=== PATIENT | female | born 1980 | race American Indian/Alaskan Native ===

== ENCOUNTER 2017-11-07 10:43 | Emergency (ER) | payer BC ==
[2017-11-07 11:00] VITALS: BP 110/73
--- NOTE | 2017-11-07 12:40 | Emergency Department Report ---
ED Back Pain/Injury HPI - General Chief Complaint: Urogenital-Female Stated Complaint: SEVERE BACK PAIN/UTI PROBLEMS Source: patient Limitations: No Limitations - History of Present Illness Initial Comments: This is a 37-year-old -[place] female who presents with low back pain and foul urine odor for one week. Patient states she was seen at [facility] 2 weeks ago had a full workup for STDs and diagnosed with urinary tract infection. Patient states she was started on Bactrim for 7 days and completed medication 2-3 days ago. Patient states she have frequent urinary tract infections and usually receive Macrobid for treatment. She is now complaining of low back pain, nausea, foul ammonia odor to urine. There is nausea without vomiting. She reports pain 5 out of 10 to lower back while walking which is a dull achy sensation just intermittent. Patient is also complaining of pressure after voiding with dysuria. She denies frequency, urgency abdominal pain, vaginal discharge or bleeding, fever, and chest pain. MD Complaint: back pain Onset/Timin -: days(s) Similar Symptoms Previously: Yes Place: home Radiation: none Severity: mild Severity scale (0 -10): 5 Quality: burning, dull, aching Consistency: intermittent Improves With: none Worsens With: walking Associated Symptoms: nausea/vomiting Treatments Prior to Arrival: other medications (Bactrim antibiotic) - Related Data Home Medications Medication Instructions Recorded Confirmed Last Taken Acetaminophen [Pain Relief] 500 mg PO PRN PRN 03/06/14 03/11/14 03/04/14 Citalopram Hydrobromide [celeXA] 10 mg PO DAILY 03/06/14 03/11/14 03/10/14 19:00 [place]-3 Fatty Acids/Fish Oil [Fish 1 tab PO DAILY 03/06/14 03/06/14 03/03/14 Oil] Previous Rx's Medication Instructions Recorded Last Taken Type Azithromycin [Zithromax Z-OVI] 250 mg PO DAILY #6 tablet 07/07/13 02/24/14 Rx Fluconazole [Diflucan 200] 200 mg PO QDAY #1 tablet 02/24/14 Unknown Rx Ibuprofen [Motrin] 600 mg PO Q8H PRN #30 tablet 02/24/14 02/24/14 Rx metroNIDAZOLE [Flagyl] 500 mg PO BID #20 tablet 02/24/14 03/10/14 13:00 Rx Acetaminophen/Codeine [Tylenol #3] 1 tab PO Q8H PRN #12 tablet 12/07/14 Unknown Rx Cyclobenzaprine [Flexeril 10 MG 10 mg PO TID PRN #15 tablet 12/07/14 Unknown Rx TAB] Ibuprofen [Motrin] 800 mg PO Q8HR PRN #21 tablet 12/07/14 Unknown Rx Ibuprofen [Motrin 800 MG tab] 800 mg PO Q8HR PRN #12 tablet 11/07/17 Unknown Rx Allergies Allergy/AdvReac Type Severity Reaction Status Date / Time No Known Allergies Allergy Verified 07/07/13 06:32 ED Review of Systems ROS: Stated complaint: SEVERE BACK PAIN/UTI PROBLEMS Other details as noted in HPI Constitutional: denies: chills, fever Respiratory: denies: cough, shortness of breath, wheezing Cardiovascular: denies: chest pain, palpitations Gastrointestinal: denies: abdominal pain, nausea, diarrhea Genitourinary: dysuria. denies: urgency, frequency, hematuria, discharge Musculoskeletal: back pain (low back pain). denies: joint swelling, arthralgia Skin: denies: rash, lesions Neurological: denies: headache, weakness, paresthesias Psychiatric: denies: anxiety, depression ED Past Medical Hx - Past Medical History sickle cell trait, anemia Family history: no significant family history ED Back Pain Physical Exam - Exam General: Vital signs noted. No distress. Alert and acting appropriately. Back/Abdomen: Yes Perilumbar Tenderness (left side, negative straight leg test bilaterally), No Abdominal Tenderness, No Perithoracic Tenderness, No Sacroiliac Tenderness, No Flank Tenderness, No Straight Leg Raise Pain Neuro: Yes Normal Sensation, Yes Normal DTR's, Yes Normal Gait, No Motor Weakness ED Course Vital Signs 11/07/17 10:57 Temperature 98.8 F Pulse Rate 67 Respiratory 18 Rate Blood Pressure 110/73 O2 Sat by Pulse 99 Oximetry ED Medical Decision Making - Lab Data Lab Results 11/07/17 Range/Units Unknown Urine Color Yellow (Yellow) Urine Turbidity Clear (Clear) Urine pH 6.0 (5.0-7.0) Ur Specific [place] 1.010 (1.003-1.030) Urine Protein <15 mg/dl (Negative) mg/dL Urine Glucose (UA) Neg (Negative) mg/dL Urine Ketones Neg (Negative) mg/dL Urine Blood Neg (Negative) Urine Nitrite Neg (Negative) Urine Bilirubin Neg (Negative) Urine Urobilinogen < 2.0 (<2.0) mg/dL Ur Leukocyte Esterase Sm (Negative) Urine WBC (Auto) 7.0 H (0.0-6.0) /HPF Urine RBC (Auto) 3.0 (0.0-6.0) /HPF U Epithel Cells (Auto) 3.0 (0-13.0) /HPF Urine Bacteria (Auto) 2+ (Negative) /HPF Urine HCG, Qual Negative (Negative) - Medical Decision Making Patient was examined by me. Vitals are normal and patient is in no acute distress. Obtained a urinalysis and urine hCG, all unremarkable. Patient informed of results. Start ibuprofen for muscle strain. Plan discussed with patient to discharge home and treat outpatient. Patient discharged home in stable condition. Follow up with PCP in 2-3 days. Critical care attestation.: If time is entered above; I have spent that time in minutes in the direct care of this critically ill patient, excluding procedure time. ED Disposition Clinical Impression: Strain of muscle, fascia and tendon of lower back, initial encounter Low back pain Qualifiers: Chronicity: acute Back pain laterality: bilateral Sciatica presence: without sciatica Qualified Code(s): M54.5 - Low back pain Disposition: TO HOME OR SELFCARE Is pt being admited?: No Does the pt Need Aspirin: No Condition: Stable Instructions: Low Back Strain (ED), Core Strengthening Exercises (GEN) Additional Instructions: Rest Use ice or heat on affected area for 20 minutes and off for 2 hours. Take pain medication as needed for pain. Follow up with Primary Care Provider in 2-3 days. Prescriptions: Ibuprofen [Motrin 800 MG tab] 800 mg PO Q8HR PRN #12 tablet PRN Reason: Pain , Severe (7-10) Referrals: [facility] [Provider Group] - 3-5 Days [facility] [Provider Group] - 3-5 Days DMITRIY HOOKER MD [Staff Physician] - 3-5 Days Forms: Work/School Release Form(ED) Time of Disposition: 13:56 Print Language: LATVIAN
[2017-11-07 12:56] LABS: Bacteria,Urine 2+ /HPF (Negative); Bilirubin,Urine NEG (Negative); Blood,Urine NEG (Negative); Color,Urine Yellow (Yellow); Protein,Urine <15 mg/dL mg/dL (Negative); Urobilinogen,Urine < 2.0 mg/dL (<2.0)
[2017-11-07 12:59] LABS: HCG Qualitative,Urine Negative (Negative)
== END 2017-11-07 14:07 | disposition home or self-care (01) ==
LOC: ED 10:43
DX: S39.012A Strain of muscle, fascia and tendon of lower back, initial encounter (principal); X58.XXXA Exposure to other specified factors, initial encounter; Y93.01 Activity, walking, marching and hiking; Y92.098 Other place in other non-institutional residence as the place of occurrence of the external cause; Y99.8 Other external cause status
CPT/HCPCS: 81001; 81025; 99283

== ENCOUNTER 2018-03-21 16:55 | Emergency (ER) | payer BC ==
[2018-03-21 17:05] VITALS: BP 132/66
[2018-03-21 17:58] LABS: Basophils % (Auto) 0.2 % (0.0-1.8); Eosinophils % (Auto) 0.5 % (0.0-4.3); Hematocrit 37.5 % (30.3-42.9); Hemoglobin 12.6 gm/dl (10.1-14.3); Lymphocytes # (Auto) 1.5 K/mm3 (1.2-5.4); Mean Corpuscular HGB Conc 34 % (30-34); Mean Corpuscular Volume 88 fl (79-97); Monocytes # (Auto) 1.1 K/mm3 (0.0-0.8); Monocytes % (Auto) 11.6 % (0.0-7.3); Platelet Count 282 K/mm3 (140-440); Red Blood Count 4.27 M/mm3 (3.65-5.03); Red Cell Distribution Width 15.5 % (13.2-15.2)
[2018-03-21 19:48] LABS: Bilirubin,Urine NEG (Negative); Blood,Urine LG (Negative); Color,Urine Red (Yellow); Urobilinogen,Urine < 2.0 mg/dL (<2.0)
[2018-03-21 19:49] LABS: RBC,Urine > 182.0 /HPF (0.0-6.0)
--- NOTE | 2018-03-21 20:39 | Ultrasound Report ---
FINAL REPORT EXAM: US OB <= 14 WEEKS FETUS HISTORY: VAG BLEED TECHNIQUE: Ultrasound obstetrical transabdominal PRIORS: None. FINDINGS: Endometrial thickness is 3.82 centimeters. Within the body and lower uterine segment there mixed echo genicity there is a small sac like structure without pole or yolk sac identified centrally with in the uterus along with masslike irregularity and thickened appearance of the endometrium. Sac measu res 1.6 centimeters by sac diameter corresponding to estimated gestational age 6 weeks 3 days No free fluid identified. Right ovary is 2.4 x 1.7 x 1.6 centimeters left ovary is 2.7 x 2.0 x 1.7 centimeters. Complex 1.4 lyndsay timeter left ovarian cyst noted. IMPRESSION: Small sac like structure within the uterus without pole or yolk sac identified endometrial thickening and irregularity with a masslike appearance findings are most suggestive of bl ighted ovum with retained products of conception and/or clot.
--- NOTE | 2018-03-21 20:40 | Ultrasound Report ---
FINAL REPORT EXAM: US OB TRANSVAGINAL HISTORY: VAG BLEED TECHNIQUE: PRIORS: None. FINDINGS: Endometrial thickness is 3.82 centimeters. Within the body and lower uterine segment there mixed echo genicity there is a small sac like structure without pole or yolk sac identified centrally with in the uterus along with masslike irregularity and thickened appearance of the endometrium. Sac measu res 1.6 centimeters by sac diameter corresponding to estimated gestational age 6 weeks 3 days No free fluid identified. Right ovary is 2.4 x 1.7 x 1.6 centimeters Left ovary is 2.7 x 2.0 x 1.7 centimeters. Complex 1.4 centimeter left ovarian cyst noted. IMPRESSION: Small sac like structure within the uterus without pole or yolk sac identified endometrial thickening and irregularity with a masslike appearance findings are most suggestive of bl ighted ovum with retained products of conception and/or clot.
[2018-03-21] MEDS ORDERED: IBUPROFEN PO ONE (21:18)
--- NOTE | 2018-03-21 21:23 | Emergency Department Report ---
ED Female HPI - General Chief complaint: Vaginal Bleeding Stated complaint: MISCARRIAGE Time Seen by Provider: 03/21/18 20:13 Source: patient Mode of arrival: Ambulatory Limitations: No Limitations - History of Present Illness Initial comments: Ms. Larsen is a very pleasant 38-year-old female is currently 8 weeks . She was diagnosed with threatened miscarriage at [facility] Sunday. She was evaluated by her primary site manager Dr. Selwyn Barbosa on Sunday. On both ultrasound she was at the findings of abnormal yolk sac. Her hCG was 24,000 on Sunday. Her hCG level was 23,000 on Sunday. She began spotting on Sunday. Today this evening she had large amount of bleeding with clots. Severe cramping. The cramping and pain have subsided. This is patient's third . She has 2 healthy children both by section. MD Complaint: vaginal bleeding -: Gradual Severity: severe Quality: cramping Consistency: now resolved Are you Now?: Yes Associated Symptoms: vaginal bleeding - Related Data Sexually active: Yes : 3 Para: 2 Home Medications Medication Instructions Recorded Confirmed Last Taken Acetaminophen [Pain Relief] 500 mg PO PRN PRN 03/06/14 03/11/14 03/04/14 Citalopram Hydrobromide [celeXA] 10 mg PO DAILY 03/06/14 03/11/14 03/10/14 19:00 [place]-3 Fatty Acids/Fish Oil [Fish 1 tab PO DAILY 03/06/14 03/06/14 03/03/14 Oil] Previous Rx's Medication Instructions Recorded Last Taken Type Azithromycin [Zithromax Z-OVI] 250 mg PO DAILY #6 tablet 07/07/13 02/24/14 Rx Fluconazole [Diflucan 200] 200 mg PO QDAY #1 tablet 02/24/14 Unknown Rx Ibuprofen [Motrin] 600 mg PO Q8H PRN #30 tablet 02/24/14 02/24/14 Rx metroNIDAZOLE [Flagyl] 500 mg PO BID #20 tablet 02/24/14 03/10/14 13:00 Rx Acetaminophen/Codeine [Tylenol #3] 1 tab PO Q8H PRN #12 tablet 12/07/14 Unknown Rx Cyclobenzaprine [Flexeril 10 MG 10 mg PO TID PRN #15 tablet 12/07/14 Unknown Rx TAB] Ibuprofen [Motrin] 800 mg PO Q8HR PRN #21 tablet 12/07/14 Unknown Rx Ibuprofen [Motrin 800 MG tab] 800 mg PO Q8HR PRN #12 tablet 11/07/17 Unknown Rx Ibuprofen 800 mg PO QID PRN #10 tablet 03/21/18 Unknown Rx Allergies Allergy/AdvReac Type Severity Reaction Status Date / Time No Known Allergies Allergy Verified 07/07/13 06:32 ED Review of Systems ROS: Stated complaint: MISCARRIAGE Other details as noted in HPI Comment: All other systems reviewed and negative Constitutional: denies: fever, malaise Respiratory: denies: cough Cardiovascular: denies: chest pain ED Past Medical Hx - Past Medical History Previous Medical History?: Yes Hx GERD: Yes Hx Renal Disease: No Hx Sickle Cell Disease: (SICKLE CELL TRAIT ONLY) Hx Psychiatric Treatment: Yes (anxiety) Additional medical history: sickle cell trait, anemia - Surgical History Past Surgical History?: Yes Additional Surgical History: 2 c-sections, left foot surgery - Social History Smoking Status: Current Every Day Smoker Substance Use Type: Alcohol - Medications Home Medications: Home Medications Medication Instructions Recorded Confirmed Last Taken Type Azithromycin [Zithromax Z-OVI] 250 mg PO DAILY #6 tablet 07/07/13 03/06/14 02/24/14 Rx Fluconazole [Diflucan 200] 200 mg PO QDAY #1 tablet 02/24/14 03/11/14 Unknown Rx Ibuprofen [Motrin] 600 mg PO Q8H PRN #30 tablet 02/24/14 03/06/14 02/24/14 Rx metroNIDAZOLE [Flagyl] 500 mg PO BID #20 tablet 02/24/14 03/11/14 03/10/14 13:00 Rx Acetaminophen [Pain Relief] 500 mg PO PRN PRN 03/06/14 03/11/14 03/04/14 History Citalopram Hydrobromide [celeXA] 10 mg PO DAILY 03/06/14 03/11/14 03/10/14 19:00 History [place]-3 Fatty Acids/Fish Oil [Fish 1 tab PO DAILY 03/06/14 03/06/14 03/03/14 History Oil] Acetaminophen/Codeine [Tylenol #3] 1 tab PO Q8H PRN #12 tablet 12/07/14 Unknown Rx Cyclobenzaprine [Flexeril 10 MG 10 mg PO TID PRN #15 tablet 12/07/14 Unknown Rx TAB] Ibuprofen [Motrin] 800 mg PO Q8HR PRN #21 tablet 12/07/14 Unknown Rx Ibuprofen [Motrin 800 MG tab] 800 mg PO Q8HR PRN #12 tablet 11/07/17 Unknown Rx Ibuprofen 800 mg PO QID PRN #10 tablet 03/21/18 Unknown Rx ED Physical Exam - General Limitations: No Limitations General appearance: alert, in no apparent distress - Head Head exam: Present: atraumatic, normocephalic - Eye Eye exam: Present: normal appearance - ENT ENT exam: Present: mucous membranes moist - Neck Neck exam: Present: normal inspection, full ROM - Respiratory Respiratory exam: Present: normal lung sounds bilaterally. Absent: respiratory distress, wheezes, rales, rhonchi - Cardiovascular Cardiovascular Exam: Present: regular rate, normal rhythm, normal heart sounds. Absent: systolic murmur, diastolic murmur, rubs, gallop - GI/Abdominal GI/Abdominal exam: Present: soft, normal bowel sounds. Absent: distended, tenderness, guarding, rebound - Extremities Exam Extremities exam: Present: normal inspection - Back Exam Back exam: Present: normal inspection - Neurological Exam Neurological exam: Present: alert, oriented X3 - Psychiatric Psychiatric exam: Present: normal affect, normal mood - Skin Skin exam: Present: warm, dry, intact, normal color. Absent: rash ED Course Vital Signs 03/21/18 17:02 Temperature 98.9 F Pulse Rate 102 H Respiratory 20 Rate Blood Pressure 132/66 O2 Sat by Pulse 100 Oximetry ED Medical Decision Making - Lab Data Result diagrams: 03/21/18 17:28 Laboratory Results - last 24 hr 03/21/18 03/21/18 03/21/18 17:28 17:28 17:28 WBC 9.1 RBC 4.27 Hgb 12.6 Hct 37.5 MCV 88 MCH 30 MCHC 34 RDW 15.5 H Plt Count 282 Lymph % (Auto) 17.0 [place] % (Auto) 11.6 H Eos % (Auto) 0.5 Baso % (Auto) 0.2 Lymph # 1.5 [place] # 1.1 H Eos # 0.0 Baso # 0.0 Seg Neutrophils % 70.7 H Seg Neutrophils # 6.4 HCG, Quant 23849 H Urine Color Urine Turbidity Urine pH Ur Specific [place] Urine Protein Urine Glucose (UA) Urine Ketones Urine Blood Urine Nitrite Urine Bilirubin Urine Urobilinogen Ur Leukocyte Esterase Urine WBC (Auto) Urine RBC (Auto) U Epithel Cells (Auto) Blood Type O POSITIVE Antibody Screen Negative 03/21/18 Unknown WBC RBC Hgb Hct MCV MCH MCHC RDW Plt Count Lymph % (Auto) [place] % (Auto) Eos % (Auto) Baso % (Auto) Lymph # [place] # Eos # Baso # Seg Neutrophils % Seg Neutrophils # HCG, Quant Urine Color Red Urine Turbidity Slightly-cloudy Urine pH 6.0 Ur Specific [place] 1.010 Urine Protein 30 mg/dl Urine Glucose (UA) Neg Urine Ketones Neg Urine Blood Lg Urine Nitrite Neg Urine Bilirubin Neg Urine Urobilinogen < 2.0 Ur Leukocyte Esterase Neg Urine WBC (Auto) 3.0 Urine RBC (Auto) > 182.0 U Epithel Cells (Auto) 2.0 Blood Type Antibody Screen - Radiology Data Radiology results: report reviewed Transvaginal ultrasound: Small saclike structure within the uterus without pole or yolk sac findings most consistent of blighted Ovum with retained products of conception - Medical Decision Making Ms. Larsen has findings of incomplete miscarriage. HCG is down trending from 24,000 to 14,000. No significant anemia. Bleeding has subsided. She has follow-up with Dr. Barbosa tomorrow previously scheduled appt. Discharged home with prescription for ibuprofen Blood type O+ Critical care attestation.: If time is entered above; I have spent that time in minutes in the direct care of this critically ill patient, excluding procedure time. ED Disposition Clinical Impression: Incomplete miscarriage Disposition: TO HOME OR SELFCARE Is pt being admited?: No Does the pt Need Aspirin: No Condition: Stable Instructions: Spontaneous Miscarriage (ED) Prescriptions: Ibuprofen 800 mg PO QID PRN #10 tablet PRN Reason: Pain , Severe (7-10) Referrals: SELWYN BARBOSA MD [Staff Physician] - 24 Hours Forms: Work/School Release Form(ED)
== END 2018-03-21 21:32 | disposition home or self-care (01) ==
LOC: ED 16:55
DX: O20.0 Threatened abortion (principal); K21.9 Gastro-esophageal reflux disease without esophagitis; F17.200 Nicotine dependence, unspecified, uncomplicated; Z3A.08 8 weeks gestation of pregnancy
CPT/HCPCS: 36415; 76801; 76817; 81001; 84702; 85025; 86850; 86900; 86901; 99284

== ENCOUNTER 2018-03-26 11:10 | Day surgery (SDC) | payer BC ==
[2018-03-26] MEDS ORDERED: DILAUDID IV PRN (12:48)
[2018-03-26] MEDS ORDERED: PERCOCET 5/325 PO PRN (12:48)
--- NOTE | 2018-03-26 12:48 | Anesthesia Consultation ---
Anesthesia Consult and Med Hx Date of service: 03/26/18 - Airway Anesthetic Teeth Evaluation: Good ROM Head & Neck: Adequate Mental/Hyoid Distance: Adequate Mallampati Class: Class II Intubation Access Assessment: Probably Good - Pulmonary Exam CTA: Yes - Cardiac Exam Cardiac Exam: RRR - Pre-Operative Health Status ASA Pre-Surgery Classification: ASA2 Proposed Anesthetic Plan: General - Pulmonary Hx Smoking: Yes (hookah occassionally) Hx Asthma: No Hx Respiratory Symptoms: Yes (recent URI with nonproductive cough; resolved) SOB: No - Cardiovascular System Hx Hypertension: No Hx Heart Attack/AMI: No Hx Percutaneous Transluminal Coronary Angioplasty (PTCA): No - Central Nervous System Hx Seizures: No CVA: No Hx Back Pain: Yes Hx Psychiatric Problems: Yes (anxiety) - Gastrointestinal Hx Gastroesophageal Reflux Disease: No - Endocrine Hx Renal Disease: No Hx Liver Disease: No Hx Insulin Dependent Diabetes: No Hx Non-Insulin Dependent Diabetes: No Hx Thyroid Disease: No - Other Systems Hx Alcohol Use: Yes (weekly) Hx Obesity: Yes - Additional Comments Anesthesia Medical History Comments: Spont. at 8wks. No hx anesthetic complications.
--- NOTE | 2018-03-26 12:48 | Anesthesia Day of Surgery ---
Anesthesia Day of Surgery - Day of Surgery Patient Examined: Yes Patient H&P Reviewed: Yes Patient is NPO: Yes
[2018-03-26] MEDS ORDERED: LACTATED RINGERS 1,000 ML IV SCH (13:00)
[2018-03-26] MEDS ORDERED: VERSED IV NR (13:00)
--- NOTE | 2018-03-26 13:03 | Short Stay Summary ---
Short Stay Documentation Date of service: 03/26/18 Narrative H&P: Pt is a 38yo BF LMP 01/09/18 presents for a D&C due to an incomplete . Transvaginal ultrasound showed a small saclike structure within the uterus without pole or yolk sac findings most consistent of blighted Ovum with retained products of conception. - History Principal diagnosis: Incomplete H&P: obtained from office Past Medical History: No medical history Past Surgical History: Social history: no significant social history, single - Allergies and Medications Current Medications: Allergies No Known Allergies Allergy (Verified 07/07/13 06:32) Home Medications Medication Instructions Recorded Confirmed Last Taken Type Citalopram Hydrobromide [celeXA] 10 mg PO DAILY 03/06/14 03/26/18 03/10/14 19:00 History Ibuprofen 800 mg PO QID PRN #10 tablet 03/21/18 03/26/18 03/25/18 18:00 Rx Active Medications Hydromorphone HCl (Dilaudid) 0.5 mg IV Q10MIN PRN PRN Reason: Pain , Severe (7-10) Lactated Ringer's (Lactated Ringers) 1,000 mls @ 75 mls/hr IV DIRECT SANTANA Midazolam HCl (Versed) 2 mg IV PREOP NR Stop: 03/26/18 23:59 Oxycodone/Acetaminophen (Percocet 5/325) 1 tab PO ONCE PRN PRN Reason: Pain, Moderate (4-6) - Physical exam General appearance: no acute distress Integumentary: no rash HEENT: Atraumatic Lungs: Clear to auscultation Breasts: deferred Heart: Regular rate Gastrointestinal: normal Female Genitourinary: deferred Rectal Exam: deferred Extremities: no ischemia Neurological: Normal gait, Normal speech - Brief post op/procedure progress note Date of procedure: 03/26/18 Pre-op diagnosis: 1. Blighted ovum 2. Incomplete Post-op diagnosis: same Procedure: Dilatation and curettage Anesthesia: MAC Findings: An 8-10 week size uterus with scant amounts of problems of conception. Surgeon: ABIMAEL FORD Estimated blood loss: 50-100ml Pathology: list (POC) Specimen disposition: to lab Condition: stable - Hospital course Hospital course: Unremarkable. - Disposition Condition at discharge: Good Disposition: DC-01 TO HOME OR SELFCARE - Discharge Diagnoses (1) Blighted ovum Status: Ruled-out (2) Incomplete miscarriage Status: Ruled-out Short Stay Discharge Plan Activity: no restrictions Diet: regular Follow up with: JENNIFFER GARRETT DO [Primary Care Provider] - 7 Days ABIMAEL FORD MD [Staff Physician] - 14 Days Prescriptions: Doxycycline [Vibramycin CAP] 100 mg PO Q12HR #14 capsule Ibuprofen 800 mg PO Q8HR PRN #20 tablet PRN Reason: Pain , Severe (7-10) Methylergonovine [Methergine] 0.2 mg PO Q8HR #6 tablet
[2018-03-26 13:31] LABS: Hematocrit 34.1 % (30.3-42.9); Hemoglobin 11.5 gm/dl (10.1-14.3)
[2018-03-26] MEDS ORDERED: METHERGINE IM ONE (13:36)
[2018-03-26] MEDS ORDERED: SILVER NITRATE TP ONE (13:36)
[2018-03-26] MEDS ORDERED: SUBLIMAZE ONE (13:51)
[2018-03-26] MEDS ORDERED: XYLOCAINE MPF 2% ONE (13:51)
[2018-03-26] MEDS ORDERED: DECADRON ONE (13:51)
[2018-03-26] MEDS ORDERED: DIPRIVAN 10 MG/ML IV ONE ×2 (13:52→15:40)
[2018-03-26] MEDS ORDERED: ROBINUL ONE (13:56)
[2018-03-26] MEDS ORDERED: ANCEF ONE (15:48)
[2018-03-26] MEDS ORDERED: ZOFRAN ONE (15:51)
[2018-03-26] MEDS ORDERED: TORADOL ONE (15:51)
--- NOTE | 2018-03-26 16:02 | Operative Report ---
Operative Report Operative Report: PREOPERATIVE DIAGNOSIS: 1. Blighted ovum 2. Incomplete POSTOPERATIVE DIAGNOSIS: Same OPERATIVE PROCEDURE: Dilatation and curettage. SURGEON: Selwyn Barbosa MD ANESTHESIA: Gen. Novak ANESTHESIOLOGIST: Dr. Castellon ESTIMATED BLOOD LOSS: 75 mls FINDINGS: An 8-10 week size uterus with scant amounts of products of conception COMPLICATIONS: None COUNTS: Correct x3. PROCEDURE: After the patient was correctly identified as the patient, and after general anesthesia was administered, the patient was prepped and draped in the usual sterile fashion and placed in dorsal lithotomy position. First, the bladder was emptied using a straight catheter. Next, a speculum was placed in the vaginal vault and the anterior lip of the cervix was grasped using a single- tooth tenaculum. The uterus was sounded to 10 cm. The cervical os was sequentially dilated, and a 10 mm vaccurette was used to suction blood and products of conception from the uterine cavity. After all the products of conception were removed, the procedure was considered complete. All instruments were removed from the vagina. The patient tolerated the procedure well and was transferred to the recovery room in stable condition.
[2018-03-26] MEDS ORDERED: NACL 0.9% IR ONE (16:11)
[2018-03-26 17:22] VITALS: BP 100/55
== END 2018-03-26 18:00 | disposition home or self-care (01) ==
LOC: OR 11:10
PROVIDERS: ATTEND Obstetrics & Gynecology
DX: O02.0 Blighted ovum and nonhydatidiform mole (principal); F17.210 Nicotine dependence, cigarettes, uncomplicated; K21.9 Gastro-esophageal reflux disease without esophagitis; F41.9 Anxiety disorder, unspecified; E66.9 Obesity, unspecified; Z68.34 Body mass index [BMI] 34.0-34.9, adult; Z72.89 Other problems related to lifestyle; Z98.890 Other specified postprocedural states; Z79.899 Other long term (current) drug therapy
CPT/HCPCS: 36415; 59820; 85014; 85018; 86900; 86901; 88305; J0690; J1100; J1170; J1885; J2250; J2405; J2704; J3010; J7120; J2210